=== PATIENT | male | born 1965 | race Caucasian/White ===

== ENCOUNTER 2024-10-26 07:00 | Day surgery (SDC) | payer BC ==
[2024-10-22 16:14] LABS: Absolute Eosinophils 0.2 K/uL (0-0.5); Absolute Lymphocytes (CBC) 2.3 K/uL (0.7-4.9); Absolute Monocytes 0.8 K/uL (0.1-1.3); Absolute Neutrophil 4.9 K/uL (1.8-8.0); Basophils % 0.3 % (0-1.3); Eosinophils % 2.7 % (0-4.4); Hematocrit 42.5 % (39.6-49.0); Hemoglobin 14.7 g/dL (13.6-17.9); Lymphocytes % 27.9 % (15.3-44.8); MCH 31.4 pg (27.0-35.0); MCHC 34.7 g/dL (32.0-36.0); MCV 90.4 fL (80-100); MPV 8.5 fL (7.6-11.3); Monocytes % 9.2 % (3.3-12.3); Neutrophils % 59.9 % (41.7-73.7); Nucleated Red Blood Cells % 0.2 % (0-0); Platelets 231 thou/uL (152-406); Red Cell Distribution Width 13.3 % (12.1-15.2)
[2024-10-22 16:18] LABS: PT Prothrombin Time 10.9 SECONDS (9.4-12.5); PTT, Activated Partial Thromb 31.9 SECONDS (24.3-36.9); Protime INR 0.97
[2024-10-22 16:23] LABS: Anion Gap 9.2 mEq/L (5.0-15.0); Potassium 4.2 mEq/L (3.5-5.1)
--- NOTE | 2024-10-22 22:11 | RAD REPORT ---
EXAMINATION: TWO VIEW CHEST XR CLINICAL INDICATION: Male, 59 years old. [facility] pre op for research laboratory manager. Hypertension TECHNIQUE: 2 view radiographs of the chest were performed. COMPARISON: No prior exam. FINDINGS: The lungs are well inflated and clear. No pneumothorax or sizable effusion. The heart is normal in si ze. Mediastinal contours are unremarkable. IMPRESSION: No acute or significant abnormalities.
[2024-10-26] MEDS ORDERED: ATROPINE SULF 1 MG/10 ML SYR IV ONE (07:12)
[2024-10-26] MEDS ORDERED: HEPARIN 10,000 UNIT/10 ML VIAL IV ONE (07:12)
[2024-10-26] MEDS ORDERED: MIDAZOLAM HCL 2 MG/2 ML INJ ONE (07:12)
[2024-10-26] MEDS ORDERED: HEPA 1000U/500MLS 2,000 UNIT/1,000 ML BAG IV ONE (07:12)
[2024-10-26] MEDS ORDERED: LIDOCAINE 1% 20 ML MDV ONE (07:12)
[2024-10-26] MEDS ORDERED: ASPIRIN 325 MG TAB ONE (07:13)
[2024-10-26] MEDS ORDERED: TICAGRELOR 90 MG TABLET PO ONE (07:13)
[2024-10-26] MEDS ORDERED: CLOPIDOGREL 75 MG TABLET ONE (07:13)
[2024-10-26] MEDS ORDERED: FENTANYL CITR 100 MCG/2 ML ONE (07:13)
[2024-10-26] MEDS ORDERED: HEPARIN 5000 UNIT/ML 1 ML VIAL ONE (07:13)
[2024-10-26] MEDS ORDERED: NA CHLORIDE 0.9% 500 ML ONE (07:17)
[2024-10-26 10:08] VITALS: O2SAT 95
[2024-10-26 10:57] VITALS: BP 125/71
--- NOTE | 2024-10-28 20:06 | OP ---
Date of Procedure: 10/26/2024 Surgeon: Adonis Hernandez Procedures Performed: 1.Left heart catheterization. 2.Selective coronary angiogram. Indication For Procedure: Chest pain. Abnormal stress test. Complications: None. Estimated Blood Loss: Less than 50 cc. Access: Right radial, closed by TR band. Sedation Time: 20 minutes with 1 of Versed and 75 of fentanyl. Description Of Procedure: After risks, and benefits, and alternatives were explained to the patient, patient agreed to proceed with procedure and signed informed consent. The patient was brought back to the oven laborer, prepped and draped in sterile fashion. Time-out was performed. Sedation was admini stered. Next, the right radial access was obtained. Maurice 4.0 catheter was advanced to the LV cavit y. LVEDP was obtained. Pullback did not show any gradient. Same catheter was used for selective an giogram of the left and right coronary systems. At the end of procedure, catheter was removed over a J-wire. Sheath was removed. TR band was applied. Hemostasis was achieved and patient was moved ba to recovery in stable condition. Findings: 1.Left main normal. 2.LAD; proximal mild luminal irregularities with mid diffuse 80% to 90% disease and then mid to dist al mild luminal irregularities. 3.Left circ; mild luminal irregularities. 4.OM1 small. 5.OM2/OM3 large with proximal 80% disease at the bifurcation. 6.RCA dominant with distal 80% disease at RPDA origin. 7.RPDA, proximal 80% disease and mild luminal irregularities. 8.LVEDP 11 mmHg. Assessment And Plan: Significant 4-vessel CAD including LAD, OM1, OM2, OM3, and RPDA. The plan will be to consult CT Surgery as an outpatient to evaluate for bypass surgery. ISABELLA/TITO Voice ID: [id number] Report ID: [id number]
--- NOTE | 2024-10-30 16:20 | EKG ---
Test Date: 2024-10-22 Test Time: 16:48:49 Tabulating Clerk: AVIS MEASUREMENT RESULTS: Intervals: Rate: 64 DE: 158 QRSD: 88 QT: 438 QTc: 451 Viola: P: 36 DE: 158 QRS: 51 T: 92 INTERPRETIVE STATEMENTS: Normal sinus rhythm Low voltage QRS Cannot rule out Inferior infarct, age undetermined Cannot rule out Anteroseptal infarct, age undetermined Abnormal ECG Compared to ECG 05/24/2003 11:19:00 Low QRS voltage now present Myocardial infarct finding now present Electronically Signed On 10-30-24 16:08:36 CASH CLERK by Adonis Hernandez
== END 2024-10-26 10:30 | disposition home or self-care (01) ==
LOC: CCL 07:00
PROVIDERS: ADMIT Internal Medicine; ATTEND Internal Medicine Interventional Cardiology
DX: I25.10 Atherosclerotic heart disease of native coronary artery without angina pectoris (principal); I10 Essential (primary) hypertension; E78.2 Mixed hyperlipidemia; E11.9 Type 2 diabetes mellitus without complications; Z79.4 Long term (current) use of insulin; Z79.899 Other long term (current) drug therapy; Z82.49 Family history of ischemic heart disease and other diseases of the circulatory system
CPT/HCPCS: 36415; 71046; 76937; 80048; 82947; 85025; 85610; 85730; 93005; 93458; 99152; 99153; C1893; J0461; J1644; J2003; J2250; J3010; J7040; Q9966